=== PATIENT | male | born 1980 | race Caucasian/White ===

== ENCOUNTER 2019-10-14 19:31 | Emergency (ER) | payer OTHER ==
[~2019-10-14] VITALS: Ht 177.8 cm; Wt 81.6 kg
--- NOTE | 2019-10-14 20:15 | NUR ---
ED Nurse Note: Patient wheeled into ED c/o low back pain, states that he has chronic issues with his back however today states that he felt like "he was going to collapse" reports of unbearable pain with certain positions. ao4. nad. vss. ambulates with steady gait.
[2019-10-14 20:26] VITALS: BP 123/80
[2019-10-14] MEDS ORDERED: ROBAXIN-500MG ORAL (20:27)
[2019-10-14] MEDS ORDERED: Ketorolac 60mg Inj IM ONE (20:30)
--- NOTE | 2019-10-14 21:00 | NUR ---
ER DISCHARGE NOTE: Patient is cleared to be discharged per ERMD, pt is aox4, on room air, with stable vital signs. pt was given dc and prescription instructions, pt was able to verbalize understanding, pt id band removed. pt is able to ambulate with steady gait. pt took all belongings.
[2019-10-14 21:01] VITALS: BP 123/80
--- NOTE | 2019-10-15 14:20 | Emergency Room Report ---
History of Present Illness General Chief Complaint: Lower Back Pain or Injury Source: Patient Present Illness HPI Patient is a 39-year-old male presents after increased low back pain. Patient prior history of similar symptoms in the past. He reports having intermittent back spasms. He denies any weakness to his extremities. He states that pain is worse with movement. Denies any recent trauma. Onset of symptoms was for past 1 to 2 days. He denies any fever. He denies any difficulty with urination. He denies any incontinence of stool. Denies flank pain. Denies any leg weakness or foot weakness. No numbness or tingling. No recent procedures. Allergies: Coded Allergies: No Known Allergies (Unverified , 10/14/19) Patient History Past Medical History: see triage record Reviewed Nursing Documentation: PMH: Agreed; PSxH: Agreed Nursing Documentation-PMH Past Medical History: No History, Except For Review of Systems All Other Systems: negative except mentioned in HPI Physical Exam Vital Signs Date Time Temp Pulse Resp B/P (MAP) Pulse Ox O2 Delivery O2 Flow Rate FiO2 10/14/19 19:38 98.2 86 20 123/80 (94) 98 Room Air Sp02 EP Interpretation: reviewed, normal General Appearance: normal inspection, well appearing, no apparent distress, alert, GCS 15, non-toxic Head: atraumatic ENT: normal ENT inspection, hearing grossly normal, normal voice Neck: normal inspection, full range of motion, supple, no bony tend Respiratory: normal inspection, lungs clear, normal breath sounds, no respiratory distress, no retraction, no wheezing Cardiovascular #1: regular rate, rhythm, no edema Gastrointestinal: normal inspection, normal bowel sounds, non tender, soft, no guarding, no hernia Genitourinary: no CVA tenderness Musculoskeletal: normal inspection, back normal, normal range of motion, other - Limited range of motion Neurologic: alert, motor strength/tone normal, 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 Differential diagnosis included but was not limited to herniated disc, cauda equina syndrome, abdominal aortic aneurysm , perforated ulcer, spinal epidural abscess, spinal stenosis, lumbar fracture, metastatic lesion, pyelonephritis. Patient reports having prior work-up and states that he has had negative imaging in the past. Patient denies any acute trauma. Patient was noted to have a benign exam and history. Does not show any signs of incontinence or urinary retention. Patient was given IM Toradol as well as prescription for oral muscle relaxant. He was given prescription for symptomatic treatment. Patient was advised to recheck with primary care physician in 1-2 days. He was advised to return for any worsening, pain, fever, incontinence or other concerns. Last Vital Signs Date Time Temp Pulse Resp B/P (MAP) Pulse Ox O2 Delivery O2 Flow Rate FiO2 10/14/19 21:01 98.2 76 20 123/80 98 Room Air Status: improved Disposition: HOME, SELF-CARE Condition: Stable Scripts Methocarbamol* (ROBAXIN-500*) 500 Mg Tablet 500 MG ORAL TID PRN for For Pain, #15 TAB 0 Refills Prov: Yusuf Azevedo MD 10/14/19 Referrals: NON PHYSICIAN (PCP) Patient Instructions: Back Pain, Adult Additional Instructions: Follow up with your doctor for recheck in 1-2 days. Return if worse. Yusuf Azevedo MD Oct 15, 2019 14:20
== END 2019-10-14 21:01 | disposition home or self-care (01) ==
LOC: EMR 20:20
DX: M54.5 Low back pain (principal); M62.830 Muscle spasm of back
CPT/HCPCS: 96372; 99283